=== PATIENT | male | born 2000 | race American Indian/Alaskan Native ===

== ENCOUNTER 2021-10-21 23:04 | Emergency (ER) | payer SELFPAY ==
[2021-10-21] MEDS ORDERED: ONDANSETRON 4 MG ODT TAB PO ONE (23:28)
[2021-10-21 23:31] VITALS: BP 111/70
== END 2021-10-22 05:00 | disposition left against medical advice (07) ==
LOC: ED 23:04
DX: R11.10 Vomiting, unspecified (principal); Z53.21 Procedure and treatment not carried out due to patient leaving prior to being seen by health care provider
CPT/HCPCS: J3490; Q0162

== ENCOUNTER 2021-10-22 11:49 | Emergency (ER) | payer SELFPAY | END 2021-10-22 13:00 | disposition left against medical advice (07) | LOC: ED 11:49 | DX: K92.0 Hematemesis (principal); Z53.21 Procedure and treatment not carried out due to patient leaving prior to being seen by health care provider ==